=== PATIENT | male | born 1990 | race Caucasian/White ===

== ENCOUNTER 2019-12-16 12:43 | Emergency (ER) | payer BC ==
--- NOTE | 2019-12-16 13:24 | EDM.PDOC ---
ED HPI GENERAL MEDICAL PROBLEM - General Chief Complaint: Gastrointestinal Problem Stated Complaint: BLOOD IN STOOL Time Seen by Provider: 12/16/19 13:24 Source of Information: Reports: Patient History Limitations: Reports: No Limitations - History of Present Illness INITIAL COMMENTS - FREE TEXT/NARRATIVE: 29-year-old male presents the ED because of dark black tarry stool appreciated yesterday and perhaps slightly darker than normal stool this morning. He had diffuse left lower quadrant abdominal pain that seem to come and go and is spastic fashion all day yesterday while at work. States it is still present but not to the same degree as intensity. It is worse with certain movements coughing laughing or bending over. He is able to localize it very well to the left lower quadrant. No history of similar problems. No previous abdominal surgery. No painful bowel movements and no hemorrhoids. He was seen at the walk-in clinic yesterday and sent home for a stool sample which he brought back in this morning and was reportedly guaiac positive. He was therefore advised to come to the ED. Of note his appetite is good he has had no fever or chills. He takes the occasional ibuprofen for headache no aspirin. He does not drink alcohol at all. He had a normal serum lipase done yesterday at the clinic as well as normal CMP. His white count was 8.3 with a normal differential 59% neutrophils. Onset: Sudden Onset Date: 12/15/19 Onset Time: 09:00 (LLQ abdominal pain that has persisted since yesterday am. ) Duration: Hour(s):, Getting Worse Location: Reports: Abdomen (LLQ of the abdomen and the patient is ble to localize it natasha well. ) Quality: Reports: Ache, Other (Sandoval is a constant deep aching pain with occasional sharp stabbing colicky pain.) Severity: Moderate Improves with: Reports: None Worsens with: Reports: Other (And laughing certain movements make the pain worse. He feels he is walking normally.) Context: Reports: Lifting, Other (Spontaneous occurrence yesterday morning). 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: Reports: Other (see below) Lower Abdomen Pain Score (Numeric/FACES): 3 - Related Data Allergies Allergy/AdvReac Type Severity Reaction Status Date / Time No Known Allergies Allergy Verified 12/16/19 13:23 Home Meds: Home Meds Omeprazole Magnesium [Prilosec Otc] 20 mg PO DAILY 12/16/19 [History] oxyCODONE HCl/Acetaminophen [Percocet 5-325 mg Tablet] 1 - 2 each PO Q4H PRN #16 tablet 12/16/19 [Rx] Social & Family History - Alcohol Use Alcohol Use History: No - Living Situation & Occupation Living situation: Reports: Single Occupation: Employed ED ROS GENERAL - Review of Systems Review Of Systems: See Below Constitutional: Reports: No Symptoms HEENT: Reports: No Symptoms Respiratory: Reports: No Symptoms Cardiovascular: Reports: No Symptoms Endocrine: Reports: No Symptoms GI/Abdominal: Reports: No Symptoms : Reports: No Symptoms Musculoskeletal: Reports: No Symptoms Skin: Reports: No Symptoms Neurological: Reports: No Symptoms Psychiatric: Reports: No Symptoms Hematologic/Lymphatic: Reports: No Symptoms Immunologic: Reports: No Symptoms ED EXAM, GI/ABD - Physical Exam Exam: See Below Exam Limited By: No Limitations General Appearance: Alert, WD/WN, No Apparent Distress, Other (Temperature is 36.4. Pulse is 81 and sinus respiratory to 16 with O2 sats of 96% room air BP 1 3283) Eyes: Bilateral: Normal Appearance (No blepharal pallor or icterus.) Throat/Mouth: Normal Inspection, Normal Lips, Normal Teeth, Normal Oropharynx Head: Atraumatic, Normocephalic Neck: Normal Inspection, Supple, Non-Tender, Full Range of Motion. No: Lymphadenopathy (L), Lymphadenopathy (R) Respiratory/Chest: No Respiratory Distress, Lungs Clear, Normal Breath Sounds, No Accessory Muscle Use, Chest Non-Tender Cardiovascular: Normal Peripheral Pulses, Regular Rate, Rhythm, No Edema, No Gallop, No Murmur, No Rub GI/Abdominal Exam: Soft, Guarding ( descending and sigmoid colon compatible with diverticulitis.), Rebound (Lower quadrant), Tender (Patient has well localized tenderness with peritoneal irritation along the left lower quadrant particularly laterally in the distribution of the), Abnormal Bowel Sounds (All sounds are decreased from the normal.), Other (To have a lipoma left lower quadrant of the abdominal wall measuring 1 cm in length and half a centimeter in width.). No: Rigid (Male) Exam: No Hernia Back Exam: Normal Inspection, Full Range of Motion, Other (Exam deferred since he is guaiac positive on stool past this morning). No: CVA Tenderness (L), CVA Tenderness (R) Extremities: Normal Inspection, Normal Range of Motion, Non-Tender, No Pedal E jhonny Neurological: Alert, Oriented, CN II-XII Intact, Normal Cognition Psychiatric: Normal Affect, Normal Mood Skin Exam: Warm, Dry, Intact, Normal Color, No Rash, Other (No signs of pallor.) Course - Vital Signs Last Recorded V/S: Last Vital Signs Temp 36.4 C 12/16/19 13:23 Pulse 81 12/16/19 13:23 Resp 16 12/16/19 13:23 BP 132/83 12/16/19 13:23 Pulse Ox 96 12/16/19 13:23 - Orders/Labs/Meds Labs: Laboratory Tests 12/16/19 12/16/19 12/16/19 Range/Units 13:55 13:55 13:55 WBC 5.48 (4.23-9.07) K/mm3 RBC 5.67 (4.63-6.08) M/mm3 Hgb 16.0 (13.7-17.5) gm/dl Hct 49.1 (40.1-51.0) % MCV 86.6 (79.0-92.2) fl MCH 28.2 (25.7-32.2) pg MCHC 32.6 (32.2-35.5) g/dl RDW Std Deviation 41.7 (35.1-43.9) fL Plt Count 154 L (163-337) K/mm3 MPV 11.9 (9.4-12.3) fl Neut % (Auto) 55.2 (34.0-67.9) % Lymph % (Auto) 29.7 (21.8-53.1) % Obion % (Auto) 8.0 (5.3-12.2) % Eos % (Auto) 6.0 (0.8-7.0) Baso % (Auto) 0.7 (0.1-1.2) % Neut # (Auto) 3.02 (1.78-5.38) K/mm3 Lymph # (Auto) 1.63 (1.32-3.57) K/mm3 Obion # (Auto) 0.44 (0.30-0.82) K/mm3 Eos # (Auto) 0.33 (0.04-0.54) K/mm3 Baso # (Auto) 0.04 (0.01-0.08) K/mm3 PT 10.6 (9.7-11.7) SECONDS INR 0.99 APTT (22-31) SECONDS Sodium 141 (136-145) mEq/L Potassium 4.0 (3.5-5.1) mEq/L Chloride 103 (98-107) mEq/L Carbon Dioxide 29 (21-32) mEq/L Anion Gap 13.0 (5-15) BUN 17 (7-18) mg/dL Creatinine 1.3 (0.7-1.3) mg/dL Est Cr Clr Drug Dosing 93.68 mL/min Estimated GFR (MDRD) > 60 (>60) mL/min BUN/Creatinine Ratio 13.1 L (14-18) Glucose 103 (74-106) mg/dL Calcium 9.3 (8.5-10.1) mg/dL Magnesium 2.2 (1.8-2.4) mg/dl Total Bilirubin 0.6 (0.2-1.0) mg/dL AST 18 (15-37) U/L ALT 34 (16-63) U/L Alkaline Phosphatase 61 (46-116) U/L C-Reactive Protein 1.1 H* (<1.0) mg/dL Total Protein 7.9 (6.4-8.2) g/dl Albumin 4.0 (3.4-5.0) g/dl Globulin 3.9 gm/dL Albumin/Globulin Ratio 1.0 (1-2) 12/16/19 Range/Units 13:55 WBC (4.23-9.07) K/mm3 RBC (4.63-6.08) M/mm3 Hgb (13.7-17.5) gm/dl Hct (40.1-51.0) % MCV (79.0-92.2) fl MCH (25.7-32.2) pg MCHC (32.2-35.5) g/dl RDW Std Deviation (35.1-43.9) fL Plt Count (163-337) K/mm3 MPV (9.4-12.3) fl Neut % (Auto) (34.0-67.9) % Lymph % (Auto) (21.8-53.1) % Obion % (Auto) (5.3-12.2) % Eos % (Auto) (0.8-7.0) Baso % (Auto) (0.1-1.2) % Neut # (Auto) (1.78-5.38) K/mm3 Lymph # (Auto) (1.32-3.57) K/mm3 Obion # (Auto) (0.30-0.82) K/mm3 Eos # (Auto) (0.04-0.54) K/mm3 Baso # (Auto) (0.01-0.08) K/mm3 PT (9.7-11.7) SECONDS INR APTT 26 (22-31) SECONDS Sodium (136-145) mEq/L Potassium (3.5-5.1) mEq/L Chloride (98-107) mEq/L Carbon Dioxide (21-32) mEq/L Anion Gap (5-15) BUN (7-18) mg/dL Creatinine (0.7-1.3) mg/dL Est Cr Clr Drug Dosing mL/min Estimated GFR (MDRD) (>60) mL/min BUN/Creatinine Ratio (14-18) Glucose (74-106) mg/dL Calcium (8.5-10.1) mg/dL Magnesium (1.8-2.4) mg/dl Total Bilirubin (0.2-1.0) mg/dL AST (15-37) U/L ALT (16-63) U/L Alkaline Phosphatase (46-116) U/L C-Reactive Protein (<1.0) mg/dL Total Protein (6.4-8.2) g/dl Albumin (3.4-5.0) g/dl Globulin gm/dL Albumin/Globulin Ratio (1-2) Meds: Medications Discontinued Medications Generic Name Dose Route Start Last Admin Trade Name Freq PRN Reason Stop Dose Admin Diatrizoate Meglum/Diatrizoate Sod 120 ml 12/16/19 13:49 12/16/19 14:47 Gastrografin 37% PO 12/16/19 13:50 90 ml ONETIME ONE Administration Iopamidol 50 ml 12/16/19 13:49 12/16/19 14:47 Isovue-300 (61%) IVPUSH 12/16/19 13:50 50 ml ONETIME ONE Administration Iopamidol 100 ml 12/16/19 13:49 12/16/19 14:47 Isovue-300 (61%) IVPUSH 12/16/19 13:50 100 ml ONETIME ONE Administration Sodium Chloride 10 ml 12/16/19 13:49 12/16/19 14:48 Saline Flush FLUSH 10 ml ONETIME PRN Administration IV FLUSH - Radiology Interpretation Free Text/Narrative:: 29-year-old male presents to the ED due to left lower quadrant abdominal pain that started yesterday morning and has persisted up until now. He was seen at the walk-in clinic last night after work and sent home for a stool for guaiac analysis since he reported dark black tarry stool. He returned at this morning and it is guaiac positive. He was notified by phone and advised to come to the ED for further evaluation. Examination reveals marked tenderness in the left lower quadrant of the abdomen over the sigmoid colon compatible with diverticulitis. 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 He is only age 29. He has no past history of similar occurrence. He has no hemorrhoids. And no painful bowel movements. Plan he will have CT of the abdomen with oral and IV contrast. He will have routine labs performed and compared to labs done yesterday at the clinic. He has no fever or chills. Aypical for a young man of this age to have date acute diverticulitis. - Re-Assessments/Exams Free Text/Narrative Re-Assessment/Exam: 12/16/19 15:09 White count is 5.48. Differential is 55% neutrophils. Hemoglobin is 16.0 with hematocrit of 49.1. Platelet counts 154,000. PT is 10 .6 with an INR of 0.99. PTT is 26. Sodium 141 with a potassium of 4.0. Chloride 103 with a bicarb of 29. Anion gap is 13.0. BUN is 17 with a creatinine of 1.3. GFR is greater than 60. Glucose is 103 calcium is 9.3. Magnesium is 2.2. Liver function is normal. C-reactive protein 1.1. Total protein 7.9 with an albumin fraction of 4.0. 12/16/19 15:13 CT of the abdomen and pelvis has been completed with IV and oral contrast. Liver contains no focal parenchymal abnormality. Spleen appears be within normal limits. Adrenal glands show no nodule. Pancreas shows no discrete abnormality. Kidneys show symmetric contrast enhancement with no hydronephrosis or mass being appreciated. Aorta shows no aneurysm. No retroperitoneal adenopathy or mesenteric abnormalities are seen. Appendix is seen which is normal in size. Slight inflammatory changes noted near the junction of the descending and sigmoid regions with no diverticuli seen in this area this finding could represent a so-called epiploic appendagitis other inflammatory changes seen. No free fluid is seen within the abdomen or pelvis delayed images show contrast within the distal ureters and bladder. 12/16/19 15:20 I have discussed the findings with the patient and reassured him. He will be placed on Percocet tablets to be used on a as needed basis over the next 3 4 days until the pain settles down. Usually it takes 4 to 5 days for the inflammation and pain to settle down from the infarcted appendices epiploicae . He will be given Percocet tablets x15 to take 1 or 2 every 4-6 hours necessary for pain relief in combination with Aleve 2 tablets every 8 hours to relieve pain and inflammation. He has the weekend off and hopefully will be able to return to work on Thursday although he may still be hurting for an other day or 2 after that. Departure - Departure Time of Disposition: 15:20 Disposition: Home, Self-Care 01 Condition: Fair Clinical Impression: Torsion of appendix epiploicae Abdominal pain Qualifiers: Abdominal location: left lower quadrant Qualified Code(s): R10.32 - Left lower quadrant pain - Discharge Information *PRESCRIPTION DRUG MONITORING PROGRAM REVIEWED*: Not Applicable *COPY OF PRESCRIPTION DRUG MONITORING REPORT IN PATIENT KEVEN: Not Applicable Prescriptions: oxyCODONE HCl/Acetaminophen [Percocet 5-325 mg Tablet] 1 - 2 each PO Q4H PRN #16 tablet PRN Reason: pain relief. Instructions: Abdominal Pain, Adult Referrals: PCP,None [Primary Care Provider] - Forms: ED Department Discharge Additional Instructions: Evaluation in the emergency room today in regards to acute onset of left lower quadrant abdominal pain yesterday morning which has persisted throughout the night and this today. Check up yesterday on the stool revealed that there was some blood within the stool which precipitated your visit to the ED. Today. Exam revealed well localized tenderness of the left lower quadrant of the abdomen over the distribution of the sigmoid colon concerning for either diverticulitis or an infarcted appendices epiploica CA. CT confirms the latter i.e. there is a fat globules hanging off the side of the colon that is twisted and cut off its blood supply which is causing pain and inflammation. This will last about 4 to 5 days before it goes away on its own. Suggest Motrin 600 mg every 6 hours with 1 Percocet 5/325 mg tablet every 6 hours for pain relief over the next 3 to 4 days. May see a little bit of blood in your stool once or twice in the near future but after that it should go away completely. There was no evidence of any diverticuli on CT of the abdomen. All the other organs including pancreas gallbladder liver kidneys and bowel all appeared to be normal. Sepsis Event Note (ED) - Focused Exam Vital Signs: Vital Signs Temp Pulse Resp BP Pulse Ox 12/16/19 13:23 36.4 C 81 16 132/83 96
[2019-12-16] MEDS ORDERED: Iopamidol 612 MG/ML 100 ML Bottle IVPUSH ONE (13:49)
[2019-12-16] MEDS ORDERED: Iopamidol 612 MG/ML 50 ML SDV IVPUSH ONE (13:49)
[2019-12-16] MEDS ORDERED: Sodium Chloride 0.9% 10 ML Syringe FLUSH PRN (13:49)
[2019-12-16] MEDS ORDERED: Diatrizoate Meglumine/Diatrizoate Sodium 37% 120 ML Bottle PO ONE (13:49)
--- NOTE | 2019-12-16 15:09 | CT ---
CT abdomen and pelvis Technique: Multiple axial sections were obtained from above the dome of the diaphragm inferiorly through the pubic symphysis. Intravenous and oral contrast was utilized. Delayed images were obtained through the bladder. Comparison: No previous abdominal imaging is available. Findings: Visualized lung bases show nothing acute. Liver contains no focal parenchymal abnormality. Spleen appears within normal limits. Adrenal glands show no nodule. Pancreas shows no discrete abnormality. Kidneys show symmetric contrast enhancement with no hydronephrosis or mass being appreciated. Aorta shows no aneurysm. No retroperitoneal adenopathy or mesenteric abnormalities are seen. Appendix is seen which is normal in size. Slight inflammatory change is noted near the junction of the descending and sigmoid regions no diverticuli are seen in this area and this finding could represent so-called epiploic appendagitis. No other inflammatory change is seen. No free fluid or is seen within the abdomen or pelvis. Delayed images shows contrast within the distal ureters and bladder. Bone window settings were reviewed which appear within normal limits for the patient's age. Impression: 1. Mild inflammatory change near the junction of the descending and sigmoid colon. No diverticuli are seen in this area and findings may represent so-called epiploic appendagitis 2. No additional abnormality is appreciated on CT study of the abdomen and pelvis. Diagnostic code #3 This report was dictated in [facility]T
== END 2019-12-16 15:48 | disposition home or self-care (01) ==
LOC: JD.ED 12:43
DX: N44.04 Torsion of appendix epididymis (principal); Z79.899 Other long term (current) drug therapy
CPT/HCPCS: 36415; 74177; 80053; 83735; 85025; 85610; 85730; 86140; 99284; Q9963; Q9967

== ENCOUNTER 2021-05-02 10:22 | Emergency (ER) | payer SELFPAY ==
[2021-05-02] MEDS ORDERED: Sodium Chloride 0.9% 10 ML Syringe FLUSH PRN (11:44)
[2021-05-02] MEDS ORDERED: Ketorolac 30 MG/ML SDV IVPUSH ONE (11:44)
[2021-05-02] MEDS ORDERED: methylPREDNISolone Sodium Succinate 125 MG/2 ML SDV IVPUSH ONE (11:44)
[2021-05-02] MEDS ORDERED: diphenhydrAMINE 50 MG/ML SDV IVPUSH ONE (11:45)
[2021-05-02] MEDS ORDERED: Famotidine 20 MG/2 ML SDV IVPUSH ONE (11:45)
== END 2021-05-02 13:50 | disposition home or self-care (01) ==
LOC: JD.ED 10:22
DX: J02.8 Acute pharyngitis due to other specified organisms (principal); K12.2 Cellulitis and abscess of mouth; Z79.899 Other long term (current) drug therapy
CPT/HCPCS: 36415; 80053; 85025; 86308; 87651-QW; 96374; 96375; 99283-25; 99284; J1200; J1885; J2930; J3490